=== PATIENT | female | born 1960 | race Caucasian/White ===

== ENCOUNTER → 2021-02-09 | Outpatient (CLI) | payer MEDICARE, OTHER ==
[~2021-02-09] MED LIST: ALENDRONATE SOD70 MG PO; ASPIRIN CHEWABL81 MG PO; BACTRIM 400-801 EACH PO; CALCIUM CITRAT1 EA17 PO; CHANTIX1 MG PO; CLARITIN10 M2 PO; CLONIDINE HCL0.1 MG PO; COLCRYS0.6 MG PO; DITROPAN 5 MG TA5 MG PO; DULOXETINE HCL60 MG PO; ESOMEPRAZOLE MA40 MG PO; FENOFIBRATE134 MG PO; IMDUR ER TAB 3030 MG PO; KEFLEX750 MG PO; LEVOTHYROXINE25 MCG PO; LINZESS290 MCG PO; LIORESAL TAB 1010 MG PO; LORTAB 7.5-3251 EACH PO; LYRICA150 MG PO; MEGA BIOTIN10000 MCG PO; MELOXICAM15 MG PO; METOPROLOL SUC100 MG PO; MIRAPEX0.5 MG PO; MULTIVITAMINS1 EAC1 PO; NORCO 5-325 TA1 EACH PO; NORCO 7.5-3251 EACH PO; OMEGA 3-6-9 CO400 MG PO; PANTOPRAZOLE SO40 MG PO; ROPINIROLE HCL1 MG PO; TRIBENZOR 40-11 EAC1 PO; VENTOLIN HFA 66.7 GM INH; VITAMIN D31000 UNIT PO
== END ==
LOC: RAD 17:01
DX: R06.00 Dyspnea, unspecified (principal)
CPT/HCPCS: 71046

== ENCOUNTER → 2021-03-16 | Outpatient (CLI) | payer MEDICARE, OTHER ==
[2021-03-16 15:16] LABS: RED BLOOD COUNT 4.82 M/UL (4.00-5.10); WHITE BLOOD COUNT 11.6 K/UL (4.5-11.0)
[2021-03-16 15:35] LABS: BUN/CREATININE RATIO 21 (0-10)
== END ==
LOC: LAB 13:46
PROVIDERS: Internal Medicine
DX: M10.9 Gout, unspecified (principal); Z79.899 Other long term (current) drug therapy
CPT/HCPCS: 36415; 80053; 84550; 85025

== ENCOUNTER → 2021-09-27 | Outpatient (CLI) | payer MEDICARE, OTHER | LOC: SLEEP 11:56 | DX: G47.33 Obstructive sleep apnea (adult) (pediatric) (principal) | CPT/HCPCS: 95810 ==

== ENCOUNTER → 2021-10-05 | Outpatient (CLI) | payer MEDICARE, OTHER | LOC: EXRD 09-24 11:30 | DX: M81.0 Age-related osteoporosis without current pathological fracture (principal); M85.852 Other specified disorders of bone density and structure, left thigh | CPT/HCPCS: 77080 ==

== ENCOUNTER → 2021-10-05 | Outpatient (CLI) | payer MEDICARE, OTHER | LOC: KOH-I 14:12 | DX: M85.80 Other specified disorders of bone density and structure, unspecified site (principal); R19.09 Other intra-abdominal and pelvic swelling, mass and lump | CPT/HCPCS: 73721 ==

== ENCOUNTER → 2021-11-24 | Outpatient (CLI) | payer MEDICARE, OTHER | LOC: CT 15:30 | DX: R07.1 Chest pain on breathing (principal); R10.9 Unspecified abdominal pain; N83.291 Other ovarian cyst, right side; J98.09 Other diseases of bronchus, not elsewhere classified | CPT/HCPCS: 71046 ==

== ENCOUNTER → 2022-01-12 | Outpatient (CLI) | payer MEDICARE, OTHER | LOC: KOH-I 13:46 | DX: R60.0 Localized edema (principal); M71.22 Synovial cyst of popliteal space [Baker], left knee | CPT/HCPCS: 93971 ==

== ENCOUNTER → 2022-01-22 | Outpatient (CLI) | payer MEDICARE, OTHER | LOC: HEART 5 12:05 | DX: J01.90 Acute sinusitis, unspecified (principal); M81.8 Other osteoporosis without current pathological fracture; J30.9 Allergic rhinitis, unspecified; J45.30 Mild persistent asthma, uncomplicated; Z87.891 Personal history of nicotine dependence | CPT/HCPCS: 94010 ==

== ENCOUNTER → 2022-01-25 | Outpatient (CLI) | payer MEDICARE, OTHER | LOC: KOH-I 11:18 | DX: R60.0 Localized edema (principal) | CPT/HCPCS: 93926 ==

== ENCOUNTER → 2022-03-08 | Day surgery (SDC) | payer MEDICARE, OTHER ==
[~2022-03-08] MED LIST changes: +ATORVASTATIN CA40 MG PO; +BUMETANIDE1 MG PO; +ENBREL50 MG/1 ML SQ; +FAMOTIDINE20 MG PO; +FARXIGA5 MG PO; +FOLIC ACID0.4 MG PO; +HYDROCODON-ACE1 EAC4 PO; +METHOTREXATE T2.5 MG PO; +TRAZODONE HCL50 MG PO; +VENTOLIN HFA INH
== END | disposition home or self-care (01) ==
LOC: OR 06:11
PROVIDERS: Surgery
PROC: 0DJD8ZZ Inspection of Lower Intestinal Tract, Via Natural or Artificial Opening Endoscopic (ICD-10-PCS; 2022-03-08)
PROC: 0DB98ZX Excision of Duodenum, Via Natural or Artificial Opening Endoscopic, Diagnostic (ICD-10-PCS; principal; 2022-03-08 10:30)
PROC: 0DB78ZX Excision of Stomach, Pylorus, Via Natural or Artificial Opening Endoscopic, Diagnostic (ICD-10-PCS; 2022-03-08 10:30)
DX: K31.89 Other diseases of stomach and duodenum (principal); Z20.822 Contact with and (suspected) exposure to COVID-19; K29.80 Duodenitis without bleeding; Z28.310 Unvaccinated for COVID-19; I10 Essential (primary) hypertension; K21.9 Gastro-esophageal reflux disease without esophagitis; J44.9 Chronic obstructive pulmonary disease, unspecified; E78.00 Pure hypercholesterolemia, unspecified; E78.5 Hyperlipidemia, unspecified; M10.9 Gout, unspecified; M81.0 Age-related osteoporosis without current pathological fracture; E03.9 Hypothyroidism, unspecified; M06.9 Rheumatoid arthritis, unspecified; G25.81 Restless legs syndrome; G89.29 Other chronic pain; G47.30 Sleep apnea, unspecified; E11.9 Type 2 diabetes mellitus without complications; G62.9 Polyneuropathy, unspecified; M19.90 Unspecified osteoarthritis, unspecified site; E66.01 Morbid (severe) obesity due to excess calories; I25.2 Old myocardial infarction; Z68.41 Body mass index [BMI] 40.0-44.9, adult; Z79.82 Long term (current) use of aspirin; Z79.890 Hormone replacement therapy; Z79.84 Long term (current) use of oral hypoglycemic drugs; Z79.899 Other long term (current) drug therapy; Z87.891 Personal history of nicotine dependence; Z88.8 Allergy status to other drugs, medicaments and biological substances; Z91.040 Latex allergy status
CPT/HCPCS: 82962; J2704; J7120; U0002

== ENCOUNTER 2022-07-07 15:58 | Emergency (ER) | payer MEDICARE, OTHER ==
[2022-07-07 16:42] LABS: HEMOGLOBIN 16.2 gm/dl (12.3-15.3); RED BLOOD COUNT 4.8 M/UL (4.00-5.10); WHITE BLOOD COUNT 10.8 K/UL (4.5-11.0)
[2022-07-07] MEDS ORDERED: ANTIVERT25 M1 PO (20:13)
== END 2022-07-07 20:56 | disposition home or self-care (01) ==
LOC: ER1 15:58
DX: R42 Dizziness and giddiness (principal); E11.9 Type 2 diabetes mellitus without complications; I25.10 Atherosclerotic heart disease of native coronary artery without angina pectoris; I10 Essential (primary) hypertension; F17.210 Nicotine dependence, cigarettes, uncomplicated
CPT/HCPCS: 70450; 71045; 80053; 82550; 82553; 84484; 85025; 93005; 99284